=== PATIENT | female | born 1960 | race Caucasian/White ===

== ENCOUNTER → 2021-11-04 | Outpatient (CLI) | payer BC ==
[~2021-11-04] MED LIST: AMOX TR-K CLV1 EAC4 PO; ATENOLOL25 MG PO; BENADRYL 25MG C25 MG PO; ECOTRIN81 MG PO; HYDROCHLOROTHIA25 MG PO; LORTAB 5-325 M1 EACH PO; NORVASC 5 MG TAB5 MG PO; PAXIL20 MG PO
== END ==
LOC: OPSV 13:35
DX: M81.0 Age-related osteoporosis without current pathological fracture (principal); E55.9 Vitamin D deficiency, unspecified; E53.8 Deficiency of other specified B group vitamins; J30.9 Allergic rhinitis, unspecified; F41.1 Generalized anxiety disorder
CPT/HCPCS: 96372

== ENCOUNTER → 2022-05-17 | Outpatient (CLI) | payer BC ==
[~2022-05-17] VITALS: Ht 162.6 cm; Wt 67.1 kg
== END ==
LOC: OPSV 14:00
DX: M81.0 Age-related osteoporosis without current pathological fracture (principal); I10 Essential (primary) hypertension; E78.5 Hyperlipidemia, unspecified; J30.9 Allergic rhinitis, unspecified; E53.8 Deficiency of other specified B group vitamins; E55.9 Vitamin D deficiency, unspecified; Z71.9 Counseling, unspecified
CPT/HCPCS: 96372